=== PATIENT | male | born 1960 | race Caucasian/White ===

== ENCOUNTER → 2019-08-29 | Outpatient (CLI) | payer OTHER | LOC: LB.CLINIC 10:36 | PROVIDERS: ATTEND Nurse Practitioner Family | DX: Z13.6 Encounter for screening for cardiovascular disorders (principal); I10 Essential (primary) hypertension | CPT/HCPCS: 36415; 80048; 80061 ==

== ENCOUNTER 2022-04-23 08:46 | Day surgery (SDC) | payer OTHER ==
[~2022-04-23 08:46] MED LIST: Metoclopramide 10 MG/2 ML SDV IV PRN
[2022-04-23] MEDS: Sodium Chloride 0.9% 1,000 ML IV SCH (09:32)
[2022-04-23] MEDS ORDERED: Propofol 1,000 MG/100 ML SDV ONE (10:30)
== END 2022-04-23 11:52 | disposition home or self-care (01) ==
LOC: LB.SDS 08:46
PROVIDERS: ATTEND Surgery
DX: Z12.11 Encounter for screening for malignant neoplasm of colon (principal); K57.30 Diverticulosis of large intestine without perforation or abscess without bleeding; I10 Essential (primary) hypertension; G25.0 Essential tremor; E66.3 Overweight; N40.0 Benign prostatic hyperplasia without lower urinary tract symptoms; Z79.899 Other long term (current) drug therapy; Z90.49 Acquired absence of other specified parts of digestive tract; Z98.890 Other specified postprocedural states; Z68.28 Body mass index [BMI] 28.0-28.9, adult
CPT/HCPCS: J2704; J7030

== ENCOUNTER 2024-08-25 16:09 | Emergency (ER) | payer OTHER ==
[2024-08-25] MEDS ORDERED: Sodium Chloride 0.9% 10 ML Syringe FLUSH PRN (16:25)
[2024-08-25 16:54] LABS: ALBUMIN 3.9 g/dL (3.4-5.0); BILIRUBIN TOTAL 0.9 mg/dL (0.0-1.0); CALCIUM 9.2 mg/dL (8.5-10.1); CARBON DIOXIDE,CO2 26.4 mmol/L (21.0-32.0); CREATININE 1.27 mg/dL (0.70-1.30); EST CRCL DRUG DOSING (CG) 65.35 mL/min; POTASSIUM,K 3.4 mmol/L (3.5-5.1); PROTEIN TOTAL,TP 7.8 g/dL (6.4-8.2); TROPONIN I HIGH SENSITIVITY 4.4 pg/ml (<=60.4)
== END 2024-08-25 21:30 | disposition home or self-care (01) ==
LOC: LB.ED 16:09
DX: R07.9 Chest pain, unspecified (principal); I10 Essential (primary) hypertension; Z79.899 Other long term (current) drug therapy
CPT/HCPCS: 36415; 71045; 80053; 84484; 85379; 93005; 99285